=== PATIENT | male | born 1965 | race Caucasian/White ===

== ENCOUNTER 2017-03-23 18:13 | Emergency (ER) | payer OTHER ==
[~2017-03-23] VITALS: Ht 182.8 cm; Wt 83.9 kg
[~2017-03-23 18:13] MED LIST: ANAPROX DS550 MG PO; ZANTAC150 MG PO
[2017-03-23 18:52] LABS: ABG BASE EXCESS 0.9 mmol/L (-2.0-2.0); ABG HCO3 24.9 mmol/l (22-26); ABG O2 SATURATION 99.8 % (95-97); ARTERIAL BLOOD GAS PCO2 36.4 mmHg (35-45); ARTERIAL BLOOD GAS PH 7.441 (7.35-7.45)
[2017-03-23 19:11] LABS: HEMATOCRIT 36.9 % (42.0-52.0); HEMOGLOBIN 11.7 g/dl (14.0-18.0); MEAN CELL VOLUME 90.7 fl (80.0-94.0); MEAN CORPUSCULAR HGB 28.7 pg (27.0-31.0); MEAN CORPUSCULAR HGB CONC 31.7 g/dl (33.0-37.0); MEAN PLATELET VOLUME 10.7 fl (9.6-12.3); NUCLEATED RED BLOOD CELL 0.1 10*3/uL (0.0-0.0); NUCLEATED RED BLOOD CELL 0.3 % (0.0-0.0); PLATELET COUNT AUTOMATED 162 10*3/uL (130-400); RED BLOOD COUNT 4.07 10*6/uL (4.50-5.90); RED CELL DISTRI WIDTH 14.8 % (0-14.5); WHITE BLOOD COUNT 18.3 10*3/uL (4.8-10.8)
[2017-03-23 19:29] LABS: ALBUMIN 3.1 gm/dl (3.1-4.5); ALKALINE PHOSPHATASE 270 U/L (45-117); BUN 23 mg/dl (7-24); CHLORIDE 96 mmol/L (98-107); CPK 159 U/L (39-308); CREATININE 1.12 mg/dL (0.70-1.30); POTASSIUM 3.4 mmol/L (3.5-5.1); SGOT/AST 88 IU/L (3-35); SGPT/ALT 199 U/L (12-78); SODIUM 131 mmol/L (136-145); TOTAL PROTEIN 6.1 gm/dL (6.4-8.2)
[2017-03-23 19:36] LABS: ETHYL ALCOHOL < 3.0 mg/dl (<3); TROPONIN I 0.121 ng/ml (<0.045)
[2017-03-23 19:41] LABS: POLYCHROMASIA SLIGHT; TOTAL CELLS COUNTED 100 #CELLS
[2017-03-23 19:48] LABS: PLATELET SUFFICIENCY NORMAL (NORMAL)
[2017-03-23 20:05] LABS: BILIRUBIN NEGATIVE (NEGATIVE); BLOOD TRACE-INTACT (NEGATIVE); CLARITY CLEAR (CLEAR); COLOR YELLOW (YELLOW); GLUCOSE NEGATIVE (NEGATIVE); KETONE NEGATIVE (NEGATIVE); LEUKO ESTERASE NEGATIVE (NEGATIVE); NITRITE NEGATIVE (NEGATIVE); PH 6.5 (5.0-9.0); SPECIFIC GRAVITY <= 1.005 (1.005-1.030)
[2017-03-23 20:15] LABS: URINE AMPHETAMINES < 1000 (1000ng/ml); URINE BARBITURATES < 200 (200ng/ml); URINE BENZODIAZEPINES < 200 (200ng/ml); URINE CANNABINOIDS (THC) < 50 (50ng/ml); URINE COCAINE > 300 (300ng/ml); URINE METHADONE < 300 (300ng/ml); URINE OPIATES < 300 (300ng/ml)
[2017-03-23 20:19] LABS: URINE PHENCYCLIDINE < 25 (25ng/ml)
[2017-03-23 20:21] LABS: WBC 0-2 wbc/hpf (0-5)
== END 2017-03-23 22:13 | disposition short-term general hospital (02) ==
LOC: ED 18:13
PROVIDERS: Emergency Medicine
DX: A41.9 Sepsis, unspecified organism (principal); R65.20 Severe sepsis without septic shock; J96.00 Acute respiratory failure, unspecified whether with hypoxia or hypercapnia; I50.9 Heart failure, unspecified; Z91.040 Latex allergy status